=== PATIENT | male | born 1955 | race Caucasian/White ===

== ENCOUNTER → 2020-06-12 10:42 | Outpatient (BNVA) | payer MEDICARE, OTHER, SELFPAY | PROVIDERS: Visit Provider Emergency Medicine | DX: N50.89 Other specified disorders of the male genital organs (principal) | CPT/HCPCS: 81000; 85025; 87086; G0103 ==

== ENCOUNTER 2020-06-13 12:41 | Outpatient (CLI) | payer MEDICARE, OTHER, SELFPAY ==
--- NOTE | 2020-06-13 13:30 | US_ITS ---
WS: [id number] SCROTAL ULTRASOUND EXAMINATION CLINICAL INFORMATION: N50.89 - Other specified disorders of the male genital organs COMPARISON: None. FINDINGS: Thrombosed left-sided varicoceles seen in the area of palpable concern. TESTES Normal in size and echotexture Tiny incidental cysts inferior right testicle. Color Doppler: Normal color Doppler flow pattern. Right testes size: 4.4 cm x 3.1 cm x 2.5 cm. Left testes size: 4.2 cm x 3.1 cm x 2.4 cm. EPIDIDYMIDES Normal in size and echotexture. Left epididymal cyst Color Doppler: Normal color Doppler flow pattern. Right epididymis size: 1.0 cm x 1.0 cm x 1.6 cm. Left epididymitis size: 1.1 cm x 1.0 cm x 1.3 cm. HYDROCELE Small bilateral hydroceles. VARICOCELE Thrombosed left varicocele seen in the area of interest. Adjacent left varicocele with vascular flow increases with Valsalva. OTHER FINDINGS None. US/US scrotum [id number] IMPRESSION: 1. Small bilateral hydroceles. 2. Thrombosed left varicoceles seen in the area of palpable concern left testi janelle. 3. Testicles are normal in size with normal echogenicity. Normal vascularity. 4. Left epididymal cyst measuring 8.3 x 5.4 x 8.6 mm
== END 2020-06-13 12:42 | disposition home or self-care (01) ==
LOC: RAD 12:44
PROVIDERS: PCP Nurse Practitioner Family; Visit Provider Emergency Medicine
DX: N50.89 Other specified disorders of the male genital organs (principal); N43.3 Hydrocele, unspecified; I86.1 Scrotal varices; N50.3 Cyst of epididymis
CPT/HCPCS: 76870

== ENCOUNTER → 2020-06-20 08:33 | Outpatient (BNVA) | payer MEDICARE, OTHER, SELFPAY | PROVIDERS: PCP Nurse Practitioner Family; Visit Provider Urology | DX: I86.1 Scrotal varices (principal); N50.82 Scrotal pain | CPT/HCPCS: 81003 ==